=== PATIENT | female | born 1975 | race Caucasian/White ===

== ENCOUNTER 2017-12-04 15:31 | Emergency (ER) | payer BC ==
[~2017-12-04] VITALS: Ht 172.7 cm; Wt 113.4 kg
[2017-12-04 15:38] VITALS: BP 149/97
[2017-12-04] MEDS ORDERED: LEXAPRO20 MG PO (15:40)
[2017-12-04] MEDS ORDERED: BIRTH CONTORL (15:40)
[2017-12-04] MEDS ORDERED: TRILEPTAL300 MG PO (15:40)
[2017-12-04] MEDS ORDERED: NORCO 5-325 TA1 EACH PO (15:52)
== END 2017-12-04 15:59 | disposition home or self-care (01) ==
LOC: M.ERS 15:31
DX: K08.89 Other specified disorders of teeth and supporting structures (principal); F31.9 Bipolar disorder, unspecified